=== PATIENT | male | born 1980 | race Caucasian/White ===

== ENCOUNTER → 2016-07-15 | Outpatient (CLI) | payer OTHER ==
[2016-07-15 16:58] LABS: HEMOGLOBIN 13.9 gm/dl (14.0-17.5); RED BLOOD COUNT 4.03 M/UL (4.20-5.50); WHITE BLOOD COUNT 13.9 K/UL (4.5-11.0)
[2016-07-15 18:11] LABS: BUN/CREATININE RATIO 25 (0-10)
== END ==
LOC: LAB 14:37
PROVIDERS: Family Medicine
DX: F11.20 Opioid dependence, uncomplicated (principal); B18.2 Chronic viral hepatitis C
CPT/HCPCS: 36415; 80048; 80061; 80076; 80307; 82172; 82247; 82977; 83010; 83883; 84100; 84460; 85025; 85610; 86706; 86780; 87340; 87390

== ENCOUNTER 2016-10-06 14:53 | Emergency (ER) | payer OTHER | END 2016-10-06 16:15 | disposition home or self-care (01) | LOC: ER1 14:53 | DX: S50.01XA Contusion of right elbow, initial encounter (principal); G40.909 Epilepsy, unspecified, not intractable, without status epilepticus; F17.210 Nicotine dependence, cigarettes, uncomplicated; Z79.899 Other long term (current) drug therapy; X58.XXXA Exposure to other specified factors, initial encounter | CPT/HCPCS: 73080; 99283 ==

== ENCOUNTER 2016-10-24 15:21 | Emergency (ER) | payer OTHER | END 2016-10-24 16:45 | disposition home or self-care (01) | LOC: ER1 15:21 | DX: S30.861A Insect bite (nonvenomous) of abdominal wall, initial encounter (principal); L02.211 Cutaneous abscess of abdominal wall; G40.909 Epilepsy, unspecified, not intractable, without status epilepticus; F17.210 Nicotine dependence, cigarettes, uncomplicated; Z79.899 Other long term (current) drug therapy; W57.XXXA Bitten or stung by nonvenomous insect and other nonvenomous arthropods, initial encounter | CPT/HCPCS: 10061; 87070; 87205; 99282 ==